=== PATIENT | male | born 1990 | race Hispanic/Latino ===

== ENCOUNTER 2017-11-08 13:20 | Emergency (ER) | payer OTHER ==
[~2017-11-08] VITALS: Ht 180.3 cm; Wt 146.1 kg
[~2017-11-08 13:20] MED LIST: ATIVAN1 MG PO; CLOZAPINE200 MG PO; GLIPIZIDE XL5 MG PO; LISINOPRIL-HCT1 EAC2 PO; METFORMIN HCL1000 MG PO; PERPHENAZINE4 MG PO; RANITIDINE HCL150 MG PO
[2017-11-08] MEDS ORDERED: MECLIZINE HCL25 MG PO (14:54)
[2017-11-08] MEDS ORDERED: VENTOLIN HFA18 GM INH (14:54)
[2017-11-09] MEDS ORDERED: BENADRYL25 MG PO (22:55)
== END 2017-11-08 15:05 | disposition home or self-care (01) ==
LOC: ED 13:20
DX: H83.09 Labyrinthitis, unspecified ear (principal); R06.00 Dyspnea, unspecified; E11.9 Type 2 diabetes mellitus without complications; I10 Essential (primary) hypertension; F20.9 Schizophrenia, unspecified; Z87.891 Personal history of nicotine dependence; Z88.0 Allergy status to penicillin; Z88.1 Allergy status to other antibiotic agents; Z88.8 Allergy status to other drugs, medicaments and biological substances; Z79.84 Long term (current) use of oral hypoglycemic drugs; Z79.899 Other long term (current) drug therapy
CPT/HCPCS: 71046; 80053; 85025; 96360; 99283; J7120

== ENCOUNTER 2017-11-09 22:34 | Emergency (ER) | payer OTHER ==
[~2017-11-09] VITALS: Ht 180.3 cm; Wt 131.5 kg
[~2017-11-09 22:34] MED LIST changes: +MECLIZINE HCL25 MG PO; +VENTOLIN HFA18 GM INH
[2017-11-09] MEDS ORDERED: BENADRYL25 MG PO (22:55)
== END 2017-11-09 23:06 | disposition home or self-care (01) ==
LOC: ED 22:34
DX: R42 Dizziness and giddiness (principal); T48.6X5A Adverse effect of antiasthmatics, initial encounter; T45.0X5A Adverse effect of antiallergic and antiemetic drugs, initial encounter; I10 Essential (primary) hypertension; E11.9 Type 2 diabetes mellitus without complications; Z87.891 Personal history of nicotine dependence; Z88.0 Allergy status to penicillin; Z88.8 Allergy status to other drugs, medicaments and biological substances; Z88.1 Allergy status to other antibiotic agents; Z79.899 Other long term (current) drug therapy; Z79.84 Long term (current) use of oral hypoglycemic drugs
CPT/HCPCS: 99283; Q0163

== ENCOUNTER 2017-12-31 10:32 | Emergency (ER) | payer OTHER ==
[~2017-12-31] VITALS: Ht 180.3 cm; Wt 127.0 kg
[~2017-12-31 10:32] MED LIST changes: +BENADRYL25 MG PO
[2017-12-31] MEDS ORDERED: ATENOLOL25 MG PO (11:34)
== END 2017-12-31 11:37 | disposition home or self-care (01) ==
LOC: ED 10:32
DX: R06.02 Shortness of breath (principal); F41.0 Panic disorder [episodic paroxysmal anxiety]; I10 Essential (primary) hypertension; E11.9 Type 2 diabetes mellitus without complications; F20.9 Schizophrenia, unspecified; Z87.891 Personal history of nicotine dependence; Z88.0 Allergy status to penicillin; Z88.1 Allergy status to other antibiotic agents; Z79.84 Long term (current) use of oral hypoglycemic drugs; Z79.899 Other long term (current) drug therapy
CPT/HCPCS: 99284

== ENCOUNTER 2019-05-22 16:28 | Emergency (ER) | payer OTHER ==
[~2019-05-22] VITALS: Ht 180.3 cm; Wt 127.0 kg
[~2019-05-22 16:28] MED LIST changes: +ATENOLOL25 MG PO
--- OUTSIDE RECORDS SUMMARY | 2019-05-22 16:32 | XMS ---
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 EChelle VISIT COUNT (12 MO.) 1 KATHERYN Pretty TOTAL 1 NOTE: Visits indicate total known visits. ED/UCC VISIT TRACKING (12 MO.) 05/22/2019 16:[address] [facility] [place] TYPE: Emergency COMPLAINT: - DIFFICULTY BREATHING, DIZZY INPATIENT VISIT TRACKING (12 MO.) No inpatient visits to display in this time frame [id number]
== END 2019-05-22 17:10 | disposition home or self-care (01) ==
LOC: ED 16:28
DX: F41.9 Anxiety disorder, unspecified (principal); I10 Essential (primary) hypertension; E11.9 Type 2 diabetes mellitus without complications; Z87.891 Personal history of nicotine dependence; Z88.0 Allergy status to penicillin; Z88.1 Allergy status to other antibiotic agents; Z79.899 Other long term (current) drug therapy; Z79.84 Long term (current) use of oral hypoglycemic drugs
CPT/HCPCS: 99283